=== PATIENT | female | born 1940 | race Caucasian/White ===

== ENCOUNTER 2019-01-14 19:53 | Emergency (ER) | payer OTHER ==
[~2019-01-14] VITALS: Ht 170.2 cm; Wt 81.6 kg
[2019-01-14] MEDS ORDERED: SODIUM CHLORIDE 0.9% 1,000 ML IV ONE (22:09)
[2019-01-14 22:42] LABS: Basophils # (auto) 0.1 uL; Basophils % (auto) 0.5 % (0.0-2.0); Eosinophils # (auto) 0 uL; Eosinophils % (auto) 0.3 % (0.0-7.0); Hematocrit 43.6 % (36.0-46.0); Hemoglobin 14.1 g/dL (12.2-16.2); Lymphocytes # (auto) 1.3 uL; Lymphocytes % (auto) 9.3 % (10.0-50.0); Mean Corpuscular Hemoglobin 30.7 pg (28.0-32.0); Mean Corpuscular Hgb Conc. 32.4 g/dL (32.0-36.0); Mean Corpuscular Volume 94.8 fL (80.0-100.0); Monocytes # (auto) 0.7 uL; Monocytes % (auto) 5.5 % (0.0-12.0); Neutrophils # (auto) 11.4 uL; Neutrophils % (auto) 84.4 % (37.0-80.0); Nucleated Red Blood Cells % 0.1 %; Platelet Count (auto) 241 10^3/uL (140-450); Red Cell Distribution Width 14.4 % (11.8-14.3); White Blood Cell 13.5 10^3/uL (4.4-10.8)
[2019-01-14 22:51] LABS: Alanine Aminotransferase 31 U/L (13-56); Albumin 3.4 g/dL (3.4-5.0); Anion Gap 7 (5-15); Blood Urea Nitrogen 10 mg/dL (7-18); Calcium 8.4 mg/dL (8.5-10.1); Carbon Dioxide 30 mmol/L (21-32); Chloride 102 mmol/L (98-107); Glucose 124 mg/dL (74-106); INR < 0.93 (0.9-1.15); Magnesium 2.1 mg/dL (1.6-2.6); Partial Thromboplastin Time 26.7 sec (23.64-32.05); Potassium 3.5 mmol/L (3.5-5.1); Sodium 139 mmol/L (136-145)
[2019-01-14 22:56] LABS: Alkaline Phosphatase 130 U/L (45-117); Aspartate Aminotransferase 16 U/L (15-37); BUN/Creatinine Ratio 15.2; Bilirubin, Total 0.6 mg/dL (0.2-1.0); GFR African American 111 mL/min; GFR Non-African American 92 mL/min
[2019-01-15] MEDS ORDERED: SODIUM CHLORIDE 0.9% 1,000 ML IV ONE (00:15)
[2019-01-15] MEDS ORDERED: diphenhdrAMINE HCL 50 MG/1 ML VL IV ONE (00:15)
[2019-01-15 00:43] VITALS: BP 163/90
[2019-01-15 00:50] LABS: Urine WBC None Seen /hpf (0 - 5)
[2019-01-15 01:13] LABS: Urine Bacteria NONE SEEN /hpf (None Seen); Urine Blood Negative /uL (Negative); Urine Specific Gravity 1.014 (1.001-1.035)
== END 2019-01-15 01:13 | disposition home or self-care (01) ==
LOC: EDBD 19:53 → ER 19:56
DX: R53.1 Weakness (principal); J30.2 Other seasonal allergic rhinitis; R11.10 Vomiting, unspecified; J44.9 Chronic obstructive pulmonary disease, unspecified; I10 Essential (primary) hypertension
CPT/HCPCS: 36415; 71045; 80053; 81001; 83735; 83880; 84484; 85025; 85610; 85730; 93005; 94761; 96361; 96374; 99284; J1200; J7030

== ENCOUNTER 2019-07-12 18:34 | Inpatient (IN) | payer OTHER ==
[~2019-07-12] VITALS: Ht 152.4 cm; Wt 63.0 kg
[2019-07-12] MEDS ORDERED: LIDOCAINE 1% HCL (LOCAL ANESTH.) INJ 20ML MDV ONE (19:16)
[2019-07-12 19:43] LABS: Basophils # (auto) 0.1 10 ^3/uL (0-0.2); Basophils % (auto) 0.5 % (0.0-2.0); Eosinophils # (auto) 0.1 10 ^3/uL (0-0.8); Eosinophils % (auto) 0.5 % (0.0-7.0); Lymphocytes # (auto) 1.4 10 ^3/uL (0.4-5.4); Lymphocytes % (auto) 8.5 % (10.0-50.0); Mean Corpuscular Hemoglobin 30.7 pg (28.0-32.0); Mean Corpuscular Hgb Conc. 32.5 g/dL (32.0-36.0); Mean Corpuscular Volume 94.4 fL (80.0-100.0); Monocytes # (auto) 1.1 10 ^3/uL (0-1.3); Monocytes % (auto) 6.5 % (0.0-12.0); Neutrophils # (auto) 14.3 10 ^3/uL (1.6-8.6); Nucleated Red Blood Cells % 0.1 %; Platelet Count (auto) 373 10^3/uL (140-450); Red Blood Cells 4.56 10^6/uL (4.0-5.20); Red Cell Distribution Width 13.7 % (11.8-14.3)
[2019-07-12] MEDS ORDERED: SODIUM CHLORIDE 0.9% 500 ML IV ONE ×2 (19:45→23:30)
[2019-07-12 19:59] LABS: Albumin 3.3 g/dL (3.4-5.0); Anion Gap 11 (5-15); Blood Urea Nitrogen 15 mg/dL (7-18); Calcium 9.1 mg/dL (8.5-10.1); Carbon Dioxide 29 mmol/L (21-32); Chloride 100 mmol/L (98-107); Glucose 141 mg/dL (74-106); Magnesium 2.3 mg/dL (1.6-2.6); Potassium 3.2 mmol/L (3.5-5.1); Sodium 140 mmol/L (136-145)
[2019-07-12] MEDS ORDERED: LIDOCAINE W/ EPINEPHRINE 2% INJ 20ML VIAL IJ ONE (20:00)
[2019-07-12 20:01] LABS: INR 0.97 (0.9-1.15); Partial Thromboplastin Time 25.4 sec (23.64-32.05)
[2019-07-12 20:04] LABS: Alanine Aminotransferase 30 U/L (13-56); Alkaline Phosphatase 127 U/L (45-117); Aspartate Aminotransferase 24 U/L (15-37); Bilirubin, Total 0.4 mg/dL (0.2-1.0); GFR African American 91 mL/min; GFR Non-African American 75 mL/min; Total Protein 7.2 g/dL (6.4-8.2)
[2019-07-12] MEDS ORDERED: IOHEXOL 350 MG/ML 100ML IJ ONE (21:19)
[2019-07-12] MEDS ORDERED: ONDANSETRON HCL 4 MG/2 ML VIAL IV ONE (21:30)
[2019-07-12] MEDS ORDERED: MORPHINE SULFATE 4 MG/ML SYR/VIAL IV ONE (21:30)
[2019-07-12] MEDS ORDERED: VANCOMYCIN 1GM/250ML 250 ML IV ONE (22:15)
[2019-07-12] MEDS ORDERED: SODIUM CHLORIDE 0.9% 1,000 ML IV ONE (22:15)
[2019-07-12] MEDS ORDERED: levoFLOXacin 500MG 100 ML IV ONE (22:15)
[2019-07-13 00:22] LABS: Urine Amorphous Crystal FEW /hpf (None Seen); Urine Bacteria FEW /hpf (None Seen); Urine Blood Negative /uL (Negative); Urine Mucus FEW (None Seen); Urine Specific Gravity > 1.050 (1.001-1.035); Urine WBC 5 /hpf (0 - 5)
[2019-07-13] MEDS ORDERED: ACETAMINOPHEN 325 MG TAB PO PRN (02:30)
[2019-07-13] MEDS ORDERED: TEMAZEPAM 15 MG CAP PO PRN (02:30)
[2019-07-13] MEDS: SODIUM CHLORIDE 0.9% 1,000 ML IV SCH ×3 (02:45→16:36)
[2019-07-13] MEDS ORDERED: NITROGLYCERIN 0.4 MG SL TAB SL PRN (03:15)
[2019-07-13] MEDS ORDERED: MORPHINE SULF INJ 2 MG/ML SYRINGE 1ML IV PRN (03:15)
--- NOTE | 2019-07-13 04:30 | NUR ---
Telemetry admit from ER TERESSAELISABET admitted to Telemetry unit after SBAR received. Patient oriented to SHAYY ZIMMERMAN, RN primary RN, unit, room, bed, and unit policies regarding patient care and visiting hours. Patient now on continuous telemetry monitoring, tele box # 31 and telemetry reading on arrival to unit is SR98 . Patient placed on bedside oxygen, weighed by bedscale and encouraged to call if they need something. All questions and concerns addressed, patient verbalized understanding. Note:
--- NOTE | 2019-07-13 04:44 | NUR ---
PATIENT UNFAMILIAR WITH CURRENT HOME MEDICATIONS PATIENT UNSURE OF DOSES OF MEDICATIONS OR NAMES OF MEDICATIONS. WILL ENDORSE TO REVENUE SETTLEMENTS ADMINISTRATOR RN.
[2019-07-13 05:00] VITALS: BP 133/76
--- NOTE | 2019-07-13 07:25 | NUR ---
CLOSING SHIFT NOTES Care endorsed to maintenance supervisor 2nd shift RN
--- NOTE | 2019-07-13 07:30 | NUR ---
Opening Shift Note Assumed care of patient, pt is laying in bed alert and oriented x 4. No S/S of distress or SOB, patient denies any pain at the moment. Instructed on POC and to call for assistance as needed, call light within reach. Safety measures in place, bed set to lowest locked position x2 rails up. Will continue to monitor for changes Q1hr and PRN.
[2019-07-13 08:30] VITALS: BP 142/81
[2019-07-13] MEDS: ENOXAPARIN SOD 40 MG/0.4 ML SYRINGE SC SCH (09:59)
[2019-07-13] MEDS: FAMOTIDINE 20 MG TAB PO SCH ×2 (09:59→22:28)
--- NOTE | 2019-07-13 10:30 | NUR ---
SPOKE WITH DR. KONG, INFORMED OF PT'S BP LOW AND CRITICAL BUN 115, HE ORDERED TO DC SODIUM BICARBONATE IV AND GIVE NS 500 ML BOLUS. Addendum: 07/13/19 at 1308 by Nolvia Valentine RN WRONG PT
--- NOTE | 2019-07-13 10:50 | NUR ---
WOUND CARE NOTE: Wound care in to see patient per wound care request regarding "posterior head laceration". Bedside nurse took photograph of patient's wound upon admission for reference. Patient is 78 years old female with admitting diagnosis of Syncope. Patient with history of Thyroid CA, COPD, Htn. Patient is resting in bed in Rm. 219B. Patient is awake, alert and oriented. Patient is in no stated pain at this time. Patient reported ambulatory and she's self turning and repositioning. Her Sheng score is 22. Skin/wound assessment done with the assistance of patient's nurse, MICHELLE De Souza. On reports, patient had a fall at home and sustained laceration to occipital area and sutured in ED. Cleansed patient's head/hair with wet wash clothes to removed dry blood. Cleansed laceration with wound cleanser,patted dry and leave open to air. No other wound noted, no pressure injury noted. Patient tolerated well. Bed in low position, call henderson within reach, bed alarm on. No further wound care monitoring needed at this time. RECOMMENDATION: Nursing to continue with Daily/PRN cleaning of scalp laceration per MD order, redistribute pressure points with pillows. Addendum: 07/13/19 at 1139 by Danuta Tyson RN Amended: Links added.
--- NOTE | 2019-07-13 11:25 | NUR ---
Radiology at Bedside
--- NOTE | 2019-07-13 12:35 | NUR ---
Dr. Sher at bedside.
[2019-07-13 13:00] VITALS: BP 119/53
[2019-07-13] MEDS ORDERED: LEVOTHYROXINE SODIUM 112 MCG TAB PO ONE (13:00)
--- NOTE | 2019-07-13 13:04 | NUR ---
BP 85/41 [facility] AFTER NS 500ML BOLUS, DR. KONG MADE AWARE OF THE BP, RECEIVED ORDER TO GIVE ANOTHER NS 500ML BOLUS. WILL CONTINUE TO MONITOR. Addendum: 07/13/19 at 1310 by Nolvia Valentine RN WRONG PT NOTE.
--- NOTE | 2019-07-13 15:27 | NUR ---
hair shampoo done.
[2019-07-13 16:30] VITALS: BP 115/69
--- NOTE | 2019-07-13 19:25 | NUR ---
Opening Shift Note Assumed care of patient, awake and alert x4. No S/S of distress/SOB. Complaints of a headache, pain management options discussed. Call light is within reach, fall precautions are in place. Instructed on POC and to call for assist PRN. All questions and concerns answered, will continue to monitor for changes Q1hr and PRN.
--- NOTE | 2019-07-13 19:33 | NUR ---
Dr. Moe is at bedside.
[2019-07-13] MEDS ORDERED: LORazepam 2MG/ML-1ML VIAL IV PRN (20:15)
[2019-07-13] MEDS: HYDROcodone-ACET 5/325MG TAB PO PRN (20:33)
[2019-07-13] MEDS: ONDANSETRON HCL 4 MG/2 ML VIAL IV PRN (20:33)
--- NOTE | 2019-07-13 20:33 | NUR ---
PAIN Patient is complaining of throbbing pain to the head 7/0-10. [place] 5 given per MD order. Patient does state she is allergic to codeine and that she has thrown up in the past while taking it, but it has been years, Zofran given as a prophylactic to prevent nausea. Call light is within reach. Will continue to monitor.
--- NOTE | 2019-07-13 21:33 | NUR ---
PAIN REASSESSMENT Patient is asleep in bed, no S/S of distress or pain noted. Will continue to monitor.
[2019-07-13 22:00] VITALS: BP 115/66
[2019-07-13] MEDS: levoFLOXacin 500MG 100 ML IV SCH (22:28)
[2019-07-13] MEDS: ATORVASTATIN 20 MG TAB PO SCH (22:29)
[2019-07-14 05:45] VITALS: BP 114/53
--- NOTE | 2019-07-14 06:10 | NUR ---
IV insertion to right hand IV access obtained, via clean sterile technique by inserting 22 gauge catheter at the Right hand after 1 attempt(s). IV secured properly. No trauma to site. Patient tolerated well.
--- NOTE | 2019-07-14 06:15 | NUR ---
IV removal from LFA due to inflitration IV DC'd with clean sterile technique, catheter fully intact. Pressure dressing applied to site. Patient tolerated well.
[2019-07-14] MEDS: LEVOTHYROXINE SODIUM 112 MCG TAB PO SCH (06:46)
[2019-07-14 06:55] LABS: Basophils # (auto) 0.1 10 ^3/uL (0-0.2); Basophils % (auto) 0.6 % (0.0-2.0); Eosinophils # (auto) 0.1 10 ^3/uL (0-0.8); Eosinophils % (auto) 1.3 % (0.0-7.0); Hematocrit 36.4 % (36.0-46.0); Hemoglobin 12.1 g/dL (12.2-16.2); Lymphocytes # (auto) 1.4 10 ^3/uL (0.4-5.4); Lymphocytes % (auto) 17.2 % (10.0-50.0); Mean Corpuscular Hemoglobin 31.3 pg (28.0-32.0); Mean Corpuscular Hgb Conc. 33.4 g/dL (32.0-36.0); Mean Corpuscular Volume 93.8 fL (80.0-100.0); Monocytes # (auto) 0.8 10 ^3/uL (0-1.3); Monocytes % (auto) 9.9 % (0.0-12.0); Neutrophils # (auto) 5.9 10 ^3/uL (1.6-8.6); Platelet Count (auto) 292 10^3/uL (140-450); Red Blood Cells 3.88 10^6/uL (4.0-5.20); Red Cell Distribution Width 13.7 % (11.8-14.3); White Blood Cell 8.3 10^3/uL (4.4-10.8)
[2019-07-14 07:15] LABS: BUN/Creatinine Ratio 6.2; Calcium 8.3 mg/dL (8.5-10.1)
[2019-07-14 09:00] VITALS: BP 131/74
[2019-07-14] MEDS: ASPirin-EC 325mg tab PO SCH (09:37)
[2019-07-14] MEDS: FAMOTIDINE 20 MG TAB PO SCH ×2 (09:37→22:53)
[2019-07-14] MEDS: ENOXAPARIN SOD 40 MG/0.4 ML SYRINGE SC SCH (09:37)
[2019-07-14] MEDS: HYDROcodone-ACET 5/325MG TAB PO PRN ×2 (09:38→19:52)
[2019-07-14] MEDS ORDERED: POTASSIUM CHL 20 Meq TABLET PO ONE ×2 (10:30→11:00)
[2019-07-14] MEDS ORDERED: LORazepam 2MG/ML-1ML VIAL ONE (11:21)
[2019-07-14 16:16] LABS: Alcohol, Urine < 3.0 mg/dL (0-5); Amphetamine Screen, Urine NEGATIVE (NEGATIVE); Barbiturate Scree,Urine NEGATIVE (NEGATIVE); Benzodiazephine Screen, Urine NEGATIVE (NEGATIVE); Cannabinoid Screen, Urine NEGATIVE (NEGATIVE); Cocaine Screen, Urine NEGATIVE (NEGATIVE); Opiate Scree,Urine POSITIVE (NEGATIVE); Phencyclidine Screen, Urine NEGATIVE (NEGATIVE)
[2019-07-14 17:00] VITALS: BP 135/83
[2019-07-14] MEDS: SODIUM CHLORIDE 0.9% 1,000 ML IV SCH (18:30)
--- NOTE | 2019-07-14 19:52 | NUR ---
PAIN PATIENT IS COMPLAINING OF A THROBBING HEADACHE THAT IS 7/0-10 ON THE PAIN SCALE. PATIENT IS REQUESTING NORCO 5 FOR PAIN. WILL ADMINISTER AND CONTINUE TO MONITOR.
--- NOTE | 2019-07-14 20:36 | NUR ---
Patient's grandson called, password given and updated on plan of care. All questions and concerns answered. He stated he will call later to try and get in touch with the Neurologist.
--- NOTE | 2019-07-14 20:52 | NUR ---
PAIN REASSESSMENT Patient is complaining of a headache still 7/0-10. She is refusing Tylenol, repositioning, or an ice pack to try and relieve the pain. Will continue to monitor.
[2019-07-14] MEDS: ONDANSETRON HCL 4 MG/2 ML VIAL IV PRN (21:24)
--- NOTE | 2019-07-14 21:24 | NUR ---
NAUSEA Patient is complaining of feeling nauseous and feels like she is going to get sick. Emesis bag provided, patient placed in a semi-fowlers position, and zofran administered as ordered prn. Will continue to monitor.
--- NOTE | 2019-07-14 21:54 | NUR ---
NAUSEA REASSESSMENT Patient is still complaining of nausea, she refused saltine crackers and accepted ice chips to try and settle her stomach. Will continue to monitor.
[2019-07-14 22:00] VITALS: BP 139/82
[2019-07-14] MEDS: levoFLOXacin 500MG 100 ML IV SCH (22:53)
[2019-07-14] MEDS: ATORVASTATIN 20 MG TAB PO SCH (22:53)
--- NOTE | 2019-07-14 23:42 | NUR ---
Patient's grandson Joaquin Suero called, password provided and updated on plan of care. Dr. Moe is at the nurses station and the grandson wanted to talk with him. Patient's status and imaging studies discussed with Dr. Moe. The grandson was also asking for information, from Dr. Moe, regarding becoming the patient's trustee and POA. The patient is A/O x4 and understands what is going on and why she is here. Dr. Moe suggested we place a social science teacher consult regarding an advanced directive, the patient stated on admission that she has an advanced directive, however the copy is not present at the hospital and is at her home. The patient's emergency contact is her daughter Izzy. Will endorse to claudia MARTINEZ.
--- NOTE | 2019-07-15 02:36 | NUR ---
Patient's grandson called again, password provided at 02:36 Patient's grandson is saying his grandmother, who he spoke with 30 min before while this RN was on lunch, was telling him that she is not allowed to get out of bed, not allowed to take her dentures out, we do not allow her to wash her hands, her sheets have not been changed, her hair has not been washed since she was at home, and she does not know what is going on at the hospital and that many people come in to her room and leave without explaining why they are there or what they are doing. This RN explained to the grandson that she is being cared for, all supplies she needs are at her disposal, her hair and the area on her head where she fell is cleaned daily, hand wipes are available to clean her hands, this RN has changed the patient's sheets personally, and explained as an example that this RN was present when the doctor (Abhi) was at bedside doing an assessment and explaining to the patient the results of her imaging studies and answering any questions that she had. The grandson then stated he is surprised she is still here, "It is amazing you guys have kept her there that long, she usually goes AMA after the second day. By the second day she gets irritable and wants to leave." The grandson then proceeded to end the phone call stating he will call in the morning to check on her again. This RN verified the contents of the phone call with the aide at bedside, who is a sitter in the room. The aide stated the patient was telling her grandson all of the above content after he called her room directly to check in on her at 01:50 am and woke her up. The patient is now resting in bed asleep at this time, it is 02:50.
[2019-07-15 05:00] VITALS: BP 110/59
--- NOTE | 2019-07-15 05:56 | NUR ---
REQUEST FOR SOCIAL SERVICE AND PHYSICAL THERAPY Informed patient regarding her grandson's phone call, she stated, "If anyone would be my trustee it would be my daughter who I live with and who cares for me." This RN asked regarding the advanced directive at her home, she stated she has one but does not know where it is and neither would her daughter. Informed her of Dr. Moe's suggestion to consult with social service, she agreed. The patient is also requesting physical therapy to see her so she can get stronger. Will endorse to claudia MARTINEZ.
[2019-07-15] MEDS: LEVOTHYROXINE SODIUM 112 MCG TAB PO SCH (06:17)
[2019-07-15] MEDS: HYDROcodone-ACET 5/325MG TAB PO PRN ×2 (06:18→19:03)
--- NOTE | 2019-07-15 06:18 | NUR ---
PAIN Patient is complaining of a throbbing headache 6/0-10. [place] 5 administered as ordered prn. Will endorse recheck to dayshift.
[2019-07-15 07:45] LABS: Cholesterol 128 mg/dL (< 200); HDL Cholesterol 63 mg/dL (40-59); LDL Cholesterol 50 mg/dL (< 100); Triglycerides 98 mg/dL (< 150)
[2019-07-15] MEDS: SODIUM CHLORIDE 0.9% 1,000 ML IV SCH ×2 (07:50→21:10)
[2019-07-15 09:00] VITALS: BP 127/73
[2019-07-15 10:10] LABS: BUN/Creatinine Ratio 7.1; Calcium 7.7 mg/dL (8.5-10.1); Potassium 3.3 mmol/L (3.5-5.1)
[2019-07-15] MEDS: ASPirin-EC 325mg tab PO SCH (10:12)
[2019-07-15] MEDS: ENOXAPARIN SOD 40 MG/0.4 ML SYRINGE SC SCH (10:12)
[2019-07-15] MEDS: FAMOTIDINE 20 MG TAB PO SCH ×2 (10:12→22:00)
[2019-07-15 13:00] VITALS: BP 118/68
--- NOTE | 2019-07-15 13:26 | NUR ---
Social Service consult regarding Advance Directives. Provided pt with information on Advance Directives and durable Power of Fuse Assembler form. Pt verbalized that she did not want a DPA.
[2019-07-15 16:53] VITALS: BP 143/82
--- NOTE | 2019-07-15 17:12 | NUR ---
RECEIVED CALL BACK FROM ON CALLED HOSPITALIST DOCTOR ASHLEY. INFORMED MD PATIENT POTASSIUM WAS 3.3. NEW ORDERS RECEIVED SEE EMR FOR ORDERS.
[2019-07-15] MEDS ORDERED: POTASSIUM CHL 20MEQ/100ML 100 ML IV ONE (17:30)
--- NOTE | 2019-07-15 19:30 | NUR ---
Opening Shift Note Assumed care of patient. Patient is awake and alert. No S/S of distress/SOB or pain. Instructed on POC and to call for assist PRN, will continue to monitor for changes Q1hr and PRN. Bed locked in lowest position and bed rails up x2. Call light within reach.
--- NOTE | 2019-07-15 19:50 | NUR ---
Received call back from doctor Regino informed that patient stated IV potassium singh and would like PO potassium. New orders received see emr for orders.
[2019-07-15] MEDS ORDERED: POTASSIUM CHL 20 Meq TABLET PO ONE (21:00)
[2019-07-15 22:00] VITALS: BP 108/55
[2019-07-15] MEDS: ATORVASTATIN 20 MG TAB PO SCH (22:00)
[2019-07-15] MEDS: levoFLOXacin 500MG 100 ML IV SCH (23:00)
[2019-07-16 05:00] VITALS: BP 131/57
--- NOTE | 2019-07-16 06:32 | NUR ---
Critical lab creatinine 14.2, was 12.9 yesterday. patient is a ESRD who gets dialysis , , Thursday, but has not received due to no more access to the fistula. Awaiting consult from nephrology. Will tell of critical lab. Addendum: 07/16/19 at 0645 by Jaclyn Silva RN Critical read to MD Dr. Haley. Notified of critical reading and patient situation. Awaiting for nephro consult and dialysis.
[2019-07-16] MEDS: LEVOTHYROXINE SODIUM 112 MCG TAB PO SCH (06:44)
--- NOTE | 2019-07-16 07:20 | NUR ---
Opening shift note Assumed care from NOC RN. Patient is AOx4, no s/s of sob, pain or distress noted at this time. Bed is in lowest locked position, side rails up x2 and call light is within reach. Updated patient on plan of care and patient verbalized understanding. I will continue to monitor Q1hr and PRN.
--- NOTE | 2019-07-16 08:30 | NUR ---
Physician rounding Dr. Sher at bedside. Updated him on patient status. Per MD patient is clear for discharge, will follow through with MD order.
--- NOTE | 2019-07-16 08:45 | NUR ---
Received call from family Granddaughter Brianda called for an update. Updated her that patient is stable. Family verbalized understanding.
[2019-07-16 09:01] VITALS: BP 150/81
[2019-07-16 09:19] VITALS: BP 150/81
[2019-07-16] MEDS ORDERED: POTASSIUM CHL 20 Meq TABLET PO SCH (10:00)
[2019-07-16] MEDS: ASPirin-EC 325mg tab PO SCH (11:14)
[2019-07-16] MEDS: FAMOTIDINE 20 MG TAB PO SCH (11:14)
[2019-07-16] MEDS: SODIUM CHLORIDE 0.9% 1,000 ML IV SCH (11:21)
--- NOTE | 2019-07-16 12:10 | NUR ---
Left message to family Called Izzy, patients daughter to notify her that patient is being discharged. No answer, left message with call back number.
[2019-07-16 12:34] VITALS: BP 128/71
--- NOTE | 2019-07-16 13:49 | NUR ---
Received call from family. Patients grandson called. Stated his Brianda will be picking up the patient.
--- NOTE | 2019-07-16 14:32 | NUR ---
Discharge instructions given as ordered. Encourage to follow up with PMD as instructed. All questions and concerns addressed. Patient verbalized understanding. IV removed with catheter intact, pressure dressing applied. Telemetry unit returned to ICU. Patient taken to vehicle via wheelchair with all personal belongings, accompanied by staff. No distress noted at time of departure.
== END 2019-07-16 14:15 | disposition home or self-care (01) | DRG 871 ==
LOC: EDBD 18:34 → ER 18:36 → TELE 18:37 → TELE-CENTR 07-13 04:05
PROVIDERS: ADMIT Nurse Practitioner; ATTEND Family Medicine
PROC: 0HQ0XZZ Repair Scalp Skin, External Approach (ICD-10-PCS; principal; 2019-07-12)
DX: A41.9 Sepsis, unspecified organism (principal); S06.5X9A Traumatic subdural hemorrhage with loss of consciousness of unspecified duration, initial encounter; G93.41 Metabolic encephalopathy; E44.0 Moderate protein-calorie malnutrition; G40.89 Other seizures; N39.0 Urinary tract infection, site not specified; R55 Syncope and collapse; S01.01XA Laceration without foreign body of scalp, initial encounter; E87.6 Hypokalemia; E03.9 Hypothyroidism, unspecified; E66.9 Obesity, unspecified; E78.5 Hyperlipidemia, unspecified; F07.81 Postconcussional syndrome; E86.0 Dehydration; J44.9 Chronic obstructive pulmonary disease, unspecified; Z85.850 Personal history of malignant neoplasm of thyroid; Z88.2 Allergy status to sulfonamides; Z88.0 Allergy status to penicillin; Z88.5 Allergy status to narcotic agent; Z68.27 Body mass index [BMI] 27.0-27.9, adult; Z86.73 Personal history of transient ischemic attack (TIA), and cerebral infarction without residual deficits; Z87.891 Personal history of nicotine dependence; Z90.49 Acquired absence of other specified parts of digestive tract; Z90.710 Acquired absence of both cervix and uterus; Z72.89 Other problems related to lifestyle
CPT/HCPCS: 36415; 70450; 70551; 71045; 71275; 72125; 80048; 80053; 80061; 80307; 80320; 81001; 82728; 83605; 83735; 83880; 84443; 84484; 85025; 85379; 85610; 85730; 87040; 87086; 93005; 93306; 93886; 93970; 95819; 97163; 99291; G0378; J1956; J2001; J2405; J3480